=== PATIENT | male | born 1945 | race Caucasian/White ===

== ENCOUNTER 2018-07-29 08:27 | Day surgery (SDC) | payer OTHER, SELFPAY ==
--- NOTE | 2018-07-29 06:23 | W.COLOREPORT ---
Date of service: 07/29/18 Colonoscopy Report Date of procedure: 07/29/18 Pre-op diagnosis general: Hx of tubular adenomas Post-op diagnosis procedure note: same ( 5 polyps, diverticulosis, internal hemorrhoids and skin tags) Procedure: Colonoscopy with polypectomy by cold forceps Surgeon: Ekaterina De Guzman Anesthesia proc note operative: MAC (Sandie Lizarraga CRNA) Estimated blood loss (mL): 31 Pathology: other (5 polyps) Complications: None Disposition: same day Indications: Mr. Gar is a pleasant 72 year old male seen in the office for a repeat Colonoscopy. He has a history of colon polyps. He had 2 tubular adenomas in 2015. Risks, benefits and complications were reviewed and he wished to proceed. No guarantees were given or implied. Prep: Miralax/Dulcolax Procedure Start Time: 10:39 Procedure End Time: 11:28 Retraction Time: 31 minutes Findings: Diverticulosis of descending and sigmoid colon 5 polyps internal hemorrhoids and skin tags Tortuous colon Procedure Description: After informed consent was obtained the patient was taken to the procedure room and placed in a left decubitous position. Monitors were applied and a time out was done. The patients name, date of , procedure, allergies to medications and metal in their body was reviewed. The patient was then sedated. Once sedated and comfortable a rectal exam was done. External exam was normal. Internal exam revealed a normal sphincter tone and no palpable masses. The prostate was smooth. The scope was then introduced and retroflexed. Grade 1 internal hemorrhoids and skin tags were identified. The scope was then advanced to the cecum with difficulty due to the colon being tortuous. The TI and appendiceal orifice were identified. The prep was adequate. The scope was then slowly retracted over 31 minutes back into the rectum. 5 polyps were removed with cold forceps. 2 in the transverse colon and 3 in the sigmoid colon. There was also moderate diverticulosis of the descending and sigmoid colon. The scope was removed and the patient was woken up and taken back to Same day surgery in stable condition. The patient tolerated the procedure well and there were no immediate complications. Follow up: The patient should follow up in 3 years unless they develop changes in bowel habits or other new gastrointestinal complaints.
--- NOTE | 2018-07-29 06:25 | PDOC.DSDIS_ITS ---
Discharge Plan Disposition Patient Disposition: HOME Condition: Good Discharge Details Reason For Visit: Colonoscopy Attending Provider: kEaterina De Guzman Primary Care Provider: Rufino Turner Home Meds and New Rx's Prescriptions: Continue magnesium oxide 400 MG capsule 400 mg PO BID Qty: 180 RF: 3 aspirin 81 MG tablet,chewable 81 mg PO DAILY RF: 0 sertraline 50 MG tablet 25 - 50 mg PO DAILY Qty: 30 RF: 2 omeprazole 40 MG capsule,delayed release(DR/EC) 40 mg PO DAILY Qty: 90 RF: 3 atorvastatin [Lipitor] 20 MG tablet 20 mg PO DAILY Qty: 90 RF: 4 Discontinued polyethylene glycol 3350 17 gram powder in packet 255 g PO DAILY Qty: 15 RF: 0 bisacodyl [Dulcolax (bisacodyl)] 5 mg tablet,delayed release (DR/EC) 5 mg PO ONCE Qty: 4 RF: 0 Discharge Instructions Instructions: Colonoscopy (DC), Diverticulosis (DC), Colorectal Polyps (DC) Additional Instructions: Findings: 5 polyps Diverticulosis internal hemorrhoids and skin tag Follow up: 3 years New Medication: none Please call if you develop: fevers >101.5 Nausea or Vomiting Abdominal pain that is not transient DAY SURGERY UNIT POST COLONOSCOPY INSTRUCTIONS 1. Because there will be medication in your system for the next 24 hours, you may feel a little sleepy. Your coordination will be affected. Therefore: a. Do not drive or operate dangerous equipment for 24 hours. b. Do not drink alcohol beverages for 24 hours (not even beer). c. Plan to go home and rest for the day. 2. Generally there are no restrictions on your activity after a day or so has gone by, but you may feel a bit fatigued for a few days. 3 After you arrive home you may have a light meal and return to a normal diet as you can tolerate it without feeling sick to your stomach. 4. After surgery, you may feel pain or discomfort. This should be only transient , but if it persists please contact your doctor. 5. If there are any questions regarding the findings of your procedure, please feel free to contact your doctor. 6. If you are unable to contact your doctor with a problem, contact the [facility] at [phone]. 7. Continue all your regular medications unless directed otherwise. I understand the above instructions and have no questions. Signature of Patient or Responsible Adult Escort Date/Time Name of Responsible Adult Escort Signature of Nurse Date/Time Activity:: Activity as Tolerated Diet:: high fiber diet Discharge Orders Discharge Orders: Discharge Order (Routine); Ordered 07/29/18 Ordered By: Ekaterina De Guzman DS: Diagnosis Discharge Diagnosis (1) Diverticulosis: Status: Acute (2) Colorectal polyp detected on colonoscopy: Status: Acute
[2018-07-29 08:45] VITALS: BP 153/96; PULSE 73; RESP 16; TEMP 36.6; O2SAT 93
[2018-07-29] MEDS: Lactated Ringers 1,000 ML 80 ML IV (09:25)
--- NOTE | 2018-07-29 11:02 | BOWEL_PTH ---
PATIENT: Aldo Gar LOC: [facility] U#:[id number] AGE/SX: 72/M ROOM: RE07/29/[address]: Ekaterina De Guzman MD : [id number] BED: DIS: 07/29/2018 SPEC #: [id number] RECD: 07/29/18 12:46 STATUS: GILDARDO REQ #: [id number] SARTHAK: 07/29/18 11:[address]: Ekaterina De Guzman DEPT: Surgical Specimen RECD BY: Karla Mensah ENTERED: 07/29/18 12:49 SP TYPE: Bowel OTHR DR: Rufino Turner MD Tissues: 1 - BIOPSY BOWEL 2 - BIOPSY BOWEL Procedures: GROSS AND MICRO LEVEL 4 Comments: [id number]
[2018-07-29 12:15] VITALS: BP 141/77; PULSE 62; RESP 16; TEMP 36.5; O2SAT 99
== END 2018-07-29 12:30 | disposition home or self-care (01) ==
LOC: SUR 08:28
PROVIDERS: PCP Family Medicine; Visit Provider Surgery
PROC: 0DJD8ZZ Inspection of Lower Intestinal Tract, Via Natural or Artificial Opening Endoscopic (ICD-10-PCS; CPT 45378; principal; 2018-07-29 09:45)
DX: Z12.11 Encounter for screening for malignant neoplasm of colon (principal); D12.3 Benign neoplasm of transverse colon; D12.4 Benign neoplasm of descending colon; Z86.010 Personal history of colon polyps; I10 Essential (primary) hypertension
CPT/HCPCS: 45380; 88305

== ENCOUNTER 2020-10-18 02:29 | Outpatient (CLI) | payer OTHER, SELFPAY ==
[2020-10-18 12:58] LABS: Calculated LDL 93 mg/dL (<100); Cholesterol 156 mg/dL (<200); HDL Cholesterol 35 mg/dL (40-60); Triglyceride 143 mg/dL (<150)
== END 2020-10-18 02:49 ==
PROVIDERS: PCP Family Medicine; Visit Provider Family Medicine
DX: E78.5 Hyperlipidemia, unspecified (principal)
CPT/HCPCS: 36415; 80061

== ENCOUNTER 2021-09-01 12:15 | Emergency (ER) | payer OTHER, SELFPAY ==
[2021-09-01 12:30] VITALS: BP 200/93; PULSE 72; RESP 18; TEMP 36.9; O2SAT 97
[2021-09-01 13:28] LABS: Bilirubin Negative (Negative); Blood Negative (Negative); Clarity Clear (Clear); Glucose Negative (Negative); Ketones Negative (Negative); Leukocyte Esterase Negative (Negative); Nitrite Negative (Negative); Urobilinogen 0.2 EU/dL (Up TO 0.2)
--- NOTE | 2021-09-01 14:09 | ED.GENADUL_ITS ---
Discharge Plan Disposition Patient Disposition: HOME Condition: Stable Discharge Details Clinical Impression: Dysuria Primary Care Provider: Rufino Turner ED Provider: Karla Trammell Home Meds and New Rx's Prescriptions: New phenazopyridine [Pyridium] 100 mg tablet 100 mg PO TID PRNQty: 6 RF: 0 Continued omeprazole 40 mg capsule,delayed release(DR/EC) 40 mg PO DAILY Qty: 90 RF: 3 magnesium oxide 400 MG capsule 400 mg PO BID Qty: 180 RF: 3 losartan 50 mg tablet 50 mg PO DAILY Qty: 90 RF: 3 atorvastatin [Lipitor] 20 mg tablet 20 mg PO DAILY Qty: 90 RF: 4 Discharge Instructions Instructions: Dysuria (ED) Additional Instructions: take pyridium once a day as needed for discomfort follow-up with urology return earlier with new or worsening Referrals: Mohan Schmitt MD [ [facility] STAFF PHYSICIAN] - Rufino Turner MD [Primary Care Provider] - Discharge Data Discharge Date/Time-TO BE ENTERED AT DEPARTURE: 09/01/21 18:35 Medical Decision Making <CARLA Shi - Last Filed: 09/02/21 09:26> 75-year-old gentleman with history of TURP, presents stating urinary frequency and hesitancy over the past 48 hours. He does present initially hypertensive, repeat blood pressure revealed his blood pressure is trending downward. Denies any headache, visual change, chest pain. Bladder scan is 120. No sign of true retention. Will obtain urinalysis for potential UTI Urinalysis unremarkable. Discussed benign urinalysis with patient. Given there is no clear source of his symptoms, will obtain IV, CBC, CMP and lipase Laboratory values reveal no anemia, leukocytosis or electrolyte abnormality. Bilirubin is 2.6 but appears to be chronically elevated, has no right upper quadrant, patient is status post cholecystectomy. Discussed labs with patient. At this time we discussed obtaining CT imaging for potential additional information versus follow-up. He would like to move forward with CT imaging. Patient report a rash when receiving IV contrast but no anaphylaxis. Will give 1 L IV fluid, [address] IV [address] and obtain CT imaging with IV contrast. If CT is unremarkable, patient is comfortable discharge. Will likely benefit from being placed on the urology list and can trial oral Pyridium for symptomatic control. Medical Records Medical records reviewed: Yes I reviewed the patient's medical records. Lab Data Lab results reviewed: Yes I reviewed the patient's lab results. Labs: 09/01/21 13:20 Urine - Clean Catch Urine Culture - Pending Laboratory Tests Range/Units 09/01/21 09/01/21 09/01/21 13:20 14:04 14:04 WBC (4.4-10.8) 10^3/uL 6.28 RBC (4.36-5.78) 10^6/uL 5.23 Hgb (13.5-17.5) g/dL 16.7 Hct (40.0-50.0) % 47.7 MCV (80-95) fL 91.2 MCH (27.0-33.0) pg 31.9 MCHC (32.0-36.0) % 35.0 RDW (11.8-14.1) % 12.4 Plt Count (130-400) 10^3/uL 265 MPV (8.0-11.0) fL 9.4 Immature Gran % 0.2 Neutrophils % 71.9 Lymphocytes % 22.3 Monocytes % 5.1 Eosinophils % 0.0 Basophils % 0.5 Nucleated RBC % % 0 Absolute Neutrophils (1.2-6.7) 10^3/uL 4.52 Absolute Lymphocytes (1.2-3.4) 10^3/uL 1.40 Absolute Monocytes (0.1-0.8) 10^3/uL 0.32 Absolute Eosinophils (0.0-0.7) 10^3/uL 0.00 Absolute Basophils (0.0-0.2) 10^3/uL 0.03 Sodium (136-145) mmol/L 136 Potassium (3.5-5.1) mmol/L 4.9 Chloride (98-107) mmol/L 101 Carbon Dioxide (21.0-32.0) mmol/L 27.5 Anion Gap (3-11) mmol/L 7.5 BUN (7-18) mg/dL 14 Creatinine (0.70-1.30) mg/dL 1.2 Estimated GFR/1.73 m2 (mL/min/1.73m2) 59.18 Glucose (74-106) mg/dL 110 H Calcium (8.5-10.1) mg/dL 9.5 Total Bilirubin (0.2-1.0) mg/dL 2.6 H AST (15-37) U/L 16 ALT (16-63) U/L 35 Alkaline Phosphatase (46-116) U/L 69 Total Protein (6.4-8.2) g/dL 7.4 Albumin (3.4-5.0) g/dL 4.2 Lipase (73-393) U/L 43 Urine Color (Yellow) Yellow Urine Clarity (Clear) Clear Urine pH (5-8) 7.0 Ur Specific [place] (1.005-1.025) 1.020 Urine Protein (Negative) mg/dL Negative Urine Ketones (Negative) mg/dL Negative Urine Blood (Negative) Negative Urine Nitrite (Negative) Negative Urine Bilirubin (Negative) Negative Urine Urobilinogen (Up TO 0.2) EU/dL 0.2 Ur Leukocyte Esterase (Negative) Negative Urine Glucose (Negative) mg/dL Negative <CARLA Beltre - Last Filed: 09/01/21 20:56> Care is transferred from Korey Thakkar PA-c at 1600 Patient had a postvoid residual of 0 on his bladder scan He is resting comfortably, his vitals are stable, CT does not show acute abnormality, he did have does have 2 small renal cysts which she will follow up with urology regarding I have given him several doses of Pyridium to help with his dysuria There is no indication for antibiotics at this time, I did order urine culture which is pending He was observed post IV contrast and is asymptomatic He is discharged home in stable condition with stable vitals, is given low threshold to return with new or worsening complaints HPI <CARLA Shi Last Filed: 09/02/21 09:26> General Mode of arrival: ambulatory . Date/Time Provider Initiated Documentation: 09/01/21 12:39 . Limitations to Documentation: no limitations . Information obtained by: patient and family . HPI Narrative: This is a 75-year-old gentleman, past medical history of hypertension, TURP, GERD, presenting to the ER today for evaluation of mild dysuria, frequency and urinary retention over the past 48 hours. Patient states it simply feels as though he is not emptying his bladder completely. He denies recent illness or trauma. He denies headache, chest pain, fever, abdominal pain, nausea, vomiting, back pain, hematuria, pain in his scrotum or testicles. Denies any penile discharge. Patient states that he is still able to urinate although sometimes initiating a stream is difficult, also after he is finished urinating he feels as though his bladder is not completely empty. He does acknowledge that he is hypertensive now, reports he is anxious, but he did take his hypertensive medications this morning. Related Data Home Medications Medication Instructions Recorded Confirmed magnesium oxide 400 mg PO BID #180 tab-cap 10/31/16 09/01/21 omeprazole 40 mg capsule,delayed 40 mg PO DAILY #90 tab-cap 10/12/20 09/01/21 release losartan 50 mg tablet 50 mg PO DAILY #90 tab 04/26/21 09/01/21 atorvastatin 20 mg tablet 20 mg PO DAILY #90 tab-cap 06/21/21 09/01/21 phenazopyridine [Pyridium] 100 mg PO TID PRN #6 tab 09/01/21 Previous Rx's Medication Instructions Recorded omeprazole 40 mg capsule,delayed 40 mg PO DAILY #90 tab-cap 10/12/20 release losartan 50 mg tablet 50 mg PO DAILY #90 tab 04/26/21 atorvastatin 20 mg tablet 20 mg PO DAILY #90 tab-cap 06/21/21 phenazopyridine [Pyridium] 100 mg PO TID PRN #6 tab 09/01/21 Allergies Allergy/AdvReac Type Severity Reaction Status Date / Time Iodinated Contrast Media Allergy Intermediate Skin Rash Verified 09/01/21 12:34 [Iodinated Contrast- Oral and IV Dye] Penicillins Allergy Verified 09/01/21 12:34 General Stated Complaint: Urinary MANSOOR: 3 Review of Systems <CARLA Shi - Last Filed: 09/02/21 09:26> Constitutional Constitutional: Denies fever(s) Cardiovascular Cardiovascular: Denies chest pain and Denies dyspnea Respiratory Respiratory: Denies cough and Denies dyspnea Gastrointestinal Gastrointestinal: Denies abdominal pain, Denies nausea, Denies vomiting and Reports other (Reports suprapubic pressure) Genitourinary Genitourinary: Denies hematuria, Reports dysuria, Reports urinary hesitancy and Reports urinary urgency Musculoskeletal Musculoskeletal: Denies back pain Integumentary/Breasts Skin/Breast: Denies rash PFS <CARLA Shi - Last Filed: 09/02/21 09:26> Active Problem List Dysuria (Acute) Dyshidrosis (Acute) Nasal lesion (Acute) Phlegm in throat (Acute) Well adult (Acute) Abnormal weight (Chronic) Detrusor instability (Acute) Hypertension (Chronic) Overweight (Acute) Alcohol intake above recommended sensible limits (Acute) Hematuria (Acute) History of hydrocelectomy (Acute) History of tobacco use (Acute) History of umbilical hernia repair (Acute) Status post cholecystectomy (Acute) Status post inguinal hernia repair (Acute) Status post transurethral resection of prostate (Acute) Urinary bladder stone (Acute) Rash and nonspecific skin eruption (Acute) Diverticulosis (Acute) Tubular adenoma (Chronic) Primary malignant neoplasm of colon (Chronic) Obesity (Chronic) Neoplasm of uncertain behavior of other specified sites (Acute 05/10/16) Hyperlipidemia (Chronic) Gastroesophageal reflux disease (Chronic) Gallbladder calculus (Chronic) Essential hypertension (Chronic 11/03/13) Esophageal reflux (Chronic) 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) Diffuse large B-cell lymphoma, unspecified site (Acute 05/10/16) Dermatitis (Chronic) Depressive disorder (Chronic) Chronic interstitial cystitis (Chronic) Benign prostatic hyperplasia (Chronic) B-cell lymphoma (Chronic) Neutropenia (Chronic) Hypomagnesemia (Acute) Anemia (Acute) Surgical History Cholecystectomy (11/10/11) Colonoscopy - MAC (~1998) TUBULOVILLOUS ADENOMA WITH FOCAL AND BASIC ADENOCARCINOMA Tubular adenoma in 2015 x2 Colonoscopies 2003,2006,2010,2015 excision of hydrocele Repair of inguinal hernia Repair of umbilical hernia Transurethral prostatectomy Family History Mother No problems noted. Sister Personal history of malignant neoplasm Lymphoma Social History Smoking/Tobacco Use Status: Former Tobacco Use Smoking risk assessment performed?: Yes Alcohol Intake: former Drug use: Never Substance use type: does not use Caregiver/Support person: No Household members: spouse Housing: house Communication Needs: None Do you need help understanding health information?: Never Pets and animals: Yes Pets and animals: dog(s) Sexually active: No Do you think of yourself as: straight/heterosexual Current gender identity: male What is your relationship status?: How often do you talk on the phone with friends or family?: three or more times per week How often do you attend amish or mandaeism services?: 1-3 times per year Do you belong to any clubs or organized social groups?: decline to answer Panel score (0-1 are the most socially isolated patients): 2 What type of physical activity do you participate in: walking Duration: 30-45 minutes/day Frequency: daily Cherrie/Presybeterian: Protestant Special cherrie needs: No Seatbelt use: always Helmet use: No Drive intox or ride w/intox road train driver: No Do you feel safe at home: Yes Do you feel safe in your relationship?: Yes Exam <CARLA Shi - Last Filed: 09/02/21 09:26> Const General: cooperative, healthy appearing, comfortable and no acute distress Orientation: alert and awake HENCA Head: normal to inspection, normocephalic and atraumatic Eyes General: appearance normal, both eyes and all related structures Conjunctivae: conjunctivae normal Neck Neck: normal visual inspection, trachea midline and supple Resp Effort & Inspection: normal respiratory effort and able to speak in complete sentences Auscultation: clear to auscultation bilaterally Cardio Rate: regular rate Rhythm: regular rhythm GI Inspection: normal to inspection Palpation: soft, not firm, no guarding, no pulsatile masses and nontender Auscultation: normal bowel sounds Back/Spine/Pelvis Back: no CVA tenderness and No back tenderness Skin General skin exam: no rashes or lesions noted Neuro General: patient alert, patient awake, patient oriented x3, moves all extremities and no focal motor deficits Cognition: normal cognition Speech: speech normal Gait: normal gait Sensory Exam: no sensory deficits noted Psych Appearance: grossly normal Mental Status: mental status grossly normal Course <CARLA Shi - Last Filed: 09/02/21 09:26> Vital Signs Vital signs: Vital Signs Temperature 36.9 C 09/01/21 12:30 Pulse 72 09/01/21 12:30 Respiratory Rate 18 09/01/21 12:30 Blood Pressure 200/93 H 09/01/21 12:30 Pulse Oximetry 97 09/01/21 12:30 Temperature 36.9 C 09/01/21 12:30 Temperature Source Oral 09/01/21 12:30 Pulse 72 09/01/21 12:30 Respiratory Rate 18 09/01/21 12:30 Respiratory Effort Non-Labored 09/01/21 12:36 Blood Pressure 200/93 H 09/01/21 12:30 Blood Pressure Position Sitting 09/01/21 12:30 Pulse Oximetry 97 09/01/21 12:30 Oxygen Delivery Method Room Air 09/01/21 12:30 Oxygen Flow Rate 0 09/01/21 12:30 Lab/Test Results Lab/Test Results: Laboratory Tests Range/Units 09/01/21 13:20 Urine Color (Yellow) Yellow Urine Clarity (Clear) Clear Urine pH (5-8) 7.0 Ur Specific [place] (1.005-1.025) 1.020 Urine Protein (Negative) mg/dL Negative Urine Ketones (Negative) mg/dL Negative Urine Blood (Negative) Negative Urine Nitrite (Negative) Negative Urine Bilirubin (Negative) Negative Urine Urobilinogen (Up TO 0.2) EU/dL 0.2 Ur Leukocyte Esterase (Negative) Negative Urine Glucose (Negative) mg/dL Negative Sign Out <CARLA Shi - Last Filed: 09/02/21 09:26> Sign Out Data: Sign Out Comment: Pending CT of abdomen and pelvis for urinary frequency, hesitancy, feeling like incomplete void. Bladder scan revealed 120 cc of urine. If CT is unremarkable patient can likely be discharged with urology referral Last updated by Korey Thakkar PA at 09/01/21 15:25
[2021-09-01 14:12] LABS: Abs Immature Grans 0.01 10^3/uL (0.0-0.06); Absolute Basophil Count 0.03 10^3/uL (0.0-0.2); Absolute Monocyte Count 0.32 10^3/uL (0.1-0.8); Absolute Neutrophil Count 4.52 10^3/uL (1.2-6.7); Basophils % 0.5; HCT 47.7 % (40.0-50.0); HGB 16.7 g/dL (13.5-17.5); Immature Grans % 0.2; Lymphocytes % 22.3; MCH 31.9 pg (27.0-33.0); MCV 91.2 fL (80-95); MPV 9.4 fL (8.0-11.0); Monocytes % 5.1; Neutrophils % 71.9; Nucleated RBC 0 %; Platelet Count 265 10^3/uL (130-400); RBC 5.23 10^6/uL (4.36-5.78); RDW 12.4 % (11.8-14.1); RDW-SD 41.3 fL; WBC 6.28 10^3/uL (4.4-10.8)
[2021-09-01 14:24] VITALS: BP 171/80; PULSE 63; TEMP 36.8; O2SAT 97
[2021-09-01 14:24] LABS: ALT 35 U/L (16-63); AST 16 U/L (15-37); Albumin 4.2 g/dL (3.4-5.0); Alkaline Phosphatase 69 U/L (46-116); Anion Gap 7.5 mmol/L (3-11); BUN 14 mg/dL (7-18); Bilirubin, Total 2.6 mg/dL (0.2-1.0); CO2 27.5 mmol/L (21.0-32.0); CREATININE 1.2 mg/dL (0.70-1.30); Calcium 9.5 mg/dL (8.5-10.1); Chloride 101 mmol/L (98-107); Estimated GFR 59.18 (mL/min/1.73m2); Glucose 110 mg/dL (74-106); Lipase 43 U/L (73-393); Potassium 4.9 mmol/L (3.5-5.1); Sodium 136 mmol/L (136-145); Total Protein 7.4 g/dL (6.4-8.2)
--- NOTE | 2021-09-01 14:49 | DI.CT_ITS ---
Exam(s) CT ABDOMEN PELVIS W EXAM: CT ABDOMEN PELVIS W CLINICAL HISTORY: Urinary frequency-retention, suprapubic pain. TECHNIQUE: Imaging Protocol: Axial computed tomography images with coronal and sagittal reformatted images were created and reviewed CONTRAST MATERIAL: Intravenous: Omnipaque 350 Contrast volume:100 ml Oral: no COMPARISON: CT ABD PELVIS WO CONTRAST from 11/09/2011 CR CHEST 2 VIEWS PA,LAT from 08/12/2016 CR CHEST 2 VIEWS PA,LAT from 08/12/2016 FINDINGS: ABDOMEN: Lung Bases: Mild chronic peripheral tree-in-bud opacities Liver: Fatty infiltration.. No measurable mass. Gallbladder and biliary tract: Status post cholecystectomy. No radiodense calculus or dilation. Pancreas: Normal density, no abnormal calcifications or inflammatory process. Spleen: Normal. Kidneys: Normal size, contour and axis. No radiodense stones or obstructive uropathy. No masses seen. Small cysts. Adrenal glands: No masses seen. Abdominal Aorta: Abdominal portion non-dilated. Atherosclerotic changes. Small hiatal hernia. Soft tissues: Prior abdominal wall repair. Small amount of fat at the umbilicus. PELVIS: Bladder: No gross wall thickening. No calculi.No focal mass. Bowel: No obstruction or bowel wall thickening. Appendix normal. Peritoneal cavity: No ascites, collection or mesenteric inflammatory response. Bones: Old pubic ramus fractures. Hardware through right sacroiliac joint. Reproductive organs: Prostate calcifications. Prostate not enlarged. Probable TURP defect. Lymph nodes: Unremarkable. Bilateral inguinal hernia repair. No recurrence hernia. Impression: Unremarkable urinary bladder. No acute abnormality in the the abdomen and pelvis. RADIATION DOSE DELIVERED: 1,297.4mGy.cm Total DLP DATA REPOSITORY: All CT scans at this facility are submitted to the National Radiology Data Registry (NRDR) Dose Index Registry (DIR) with the [employer] (A[employer]). RADIATION OPTIMIZATION: All CT scans at this facility use at least one of these dose optimization te chniques: automated exposure control; mA and/or kV adjustment per patient size (includes targeted exa ms where dose is matched to clinical indication); or iterative reconstruction.
[2021-09-01] MEDS: diphenhydrAMINE 50 MG/ML VIAL IVP (15:54)
[2021-09-01] MEDS: Omnipaque 350 MG/ML 100 ML BTL IV (16:00)
[2021-09-01] MEDS: Normal Saline 1,000 ML 1000 ML IV (16:18)
--- NOTE | 2021-09-01 17:20 | DI.VRAD_ITS ---
PROCEDURE INFORMATION: Exam: CT Abdomen And Pelvis With Contrast Exam date and time: 09/01/2021 3:58 PM Age: 75 years old Clinical indication: Urinary frequency, retention, suprapubic pain TECHNIQUE: Imaging protocol: Computed tomography of the abdomen and pelvis with contrast. Radiation optimization: All CT scans at this facility use at least one of these dose optimization techniques: automated exposure control; mA and/or kV adjustment per patient size (includes targeted exams where dose is matched to clinical indication); or iterative reconstruction. Contrast material: OMNIPAQUE 350; Contrast volume: 100 ml; Contrast route: INTRAVENOUS (IV); COMPARISON: CT CHEST ABD PELVIS WO CONTRAST 05/31/2015 10:06 AM FINDINGS: Lungs: Small foci of tree-in-bud opacities noted in the lung bases, similar to prior examination and likely chronic finding. Diaphragm: There is a small hiatal hernia. Liver: Normal. No mass. Gallbladder and bile ducts: The patient is status post cholecystectomy. Pancreas: No ductal dilation. Spleen: No splenomegaly. Adrenal glands: Normal. No mass. Kidneys and ureters: A 1.6 cm simple cyst seen in the inferior aspect of the right kidney. A 6 mm hypodensity in the left inferior pole is too small to characterize but may also represent a cyst. Stomach and bowel: No obstruction. No mucosal thickening. Appendix: No evidence of appendicitis. Intraperitoneal space: No free air. No significant fluid collection. Vasculature: No abdominal aortic aneurysm. Lymph nodes: No enlarged lymph nodes. Urinary bladder: Unremarkable as visualized. Reproductive: Calcifications noted throughout the prostate gland. Bones/joints: There is evidence of prior right sacroiliac joint repair. Old fractures noted in the right inferior and bilateral superior pubic rami. No acute fracture. Lumbar spine degenerative changes noted. Soft tissues: There is evidence of hernia repair procedure in the anterior abdominal wall. There is a small fat-containing umbilical hernia noted. There is suggestion of prior bilateral inguinal hernia. IMPRESSION: 1. No evidence of bowel obstruction. 2. Unremarkable appearance of the urinary bladder. Dictated and Authenticated by: Erika Norton MD. Ordering:ALEKSANDAR Nair MD
[2021-09-01 18:36] VITALS: BP 162/80; PULSE 64; RESP 16; TEMP 36.8; O2SAT 99
== END 2021-09-01 18:35 | disposition home or self-care (01) ==
PROVIDERS: Physician Assistant; Emergency Provider Physician Assistant; PCP Family Medicine
DX: R30.0 Dysuria (principal); R35.0 Frequency of micturition
CPT/HCPCS: 36415; 80053; 83690; 96361; 96374; 99285; 74177; 81003; 85025; 87086; 99284; J1200; J3490

== ENCOUNTER 2021-09-15 16:10 | Outpatient (REF) | payer OTHER, SELFPAY ==
[2021-09-15 23:03] LABS: PSA, Screening 0.4 ng/mL (0.0-6.5)
== END 2021-09-15 16:11 | disposition home or self-care (01) ==
LOC: LBN 16:10
PROVIDERS: PCP Family Medicine; Visit Provider Nurse Practitioner Gerontology
DX: Z12.5 Encounter for screening for malignant neoplasm of prostate (principal)
CPT/HCPCS: 84153

== ENCOUNTER 2021-10-26 01:55 | Outpatient (CLI) | payer OTHER, SELFPAY ==
[2021-10-26 11:57] LABS: Source Nasal/Nares
[2021-10-26 16:14] LABS: COVID-19 PCR Negative (Negative)
== END 2021-10-26 01:56 | disposition home or self-care (01) ==
LOC: LBO 01:55
PROVIDERS: PCP Family Medicine; Visit Provider Surgery
DX: Z20.822 Contact with and (suspected) exposure to COVID-19 (principal)
CPT/HCPCS: 87635

== ENCOUNTER 2021-10-28 06:13 | Day surgery (SDC) | payer OTHER, SELFPAY ==
--- NOTE | 2021-10-27 13:32 | COLE_ITS ---
Colonoscopy Report Pre-op diagnosis general: 2018 -tubular adenomatous polyps x 5/history of CRC - stage I sigmoid Post-op diagnosis procedure note: other (polyps and diverticula- severe) Surgeon: Ariadna Colbert Anesthesia Type: General:No Airway Estimated blood loss (mL): 2 Pathology: other Complications: None Disposition: same day Prep: Miralax/Dulcolax Retraction Time: 10 Procedure Description: After informed consent was obtained the patient was taken to the procedure room and placed in a left decubitous position. Monitors were applied and a time out was done. The patients name, date of , procedure, allergies to medications and metal in their body was reviewed. The patient was then sedated. Once sedated and comfortable a rectal exam was done. External exam was normal. Internal exam revealed a normal sphincter tone and no palpable masses. The scope was then introduced and retrofelexed. no internal hemorrhoids were identified. The scope was then advanced to the cecum w/ difficulty. The TI and appendiceal orifice were identified. The prep was adequate.. The scope was then slowly retracted over 10 minutes back into the rectum. He has severe diverticular disease confined to the left colon. He has multiple large mouth diverticula. There is no signs of any active bleeding or infection. He has had a previous sigmoid resection. The anastomosis is noted and it is widely patent. There is no signs of any recurrence of carcinoma in this area. He has an extremely tortuous and floppy colon, which made maneuvering the scope difficult. 3 polyps were removed. Each of these is 5 mm, flat polyp. They were removed with cold biting forcep. He had x2 at 80 cm and 1 at 30 cm. All specimen is retrieved and no bleeding is noted. The scope was removed and the patient was woken up and taken back to Same day surgery in stable condition. The patient tolerated the procedure well and there were no immediate complications. Follow up: The patient should follow up in 5 years , if he is still healthy for anesthesia, unless they develop changes in bowel habits or other new gastrointestinal complaints.
--- NOTE | 2021-10-27 13:33 | PDOC.DSDIS_ITS ---
Discharge Plan Disposition Patient Disposition: HOME Condition: Good Discharge Details Reason For Visit: colon scope Attending Provider: Ariadna Colbert Primary Care Provider: Rufino Turner Home Meds and New Rx's Prescriptions: Continued losartan 25 mg tablet 25 mg PO DAILY Qty: 90 RF: 3 tamsulosin [Flomax] 0.4 mg capsule 0.4 mg PO DAILY Qty: 90 RF: 3 omeprazole 40 mg capsule,delayed release(DR/EC) 40 mg PO DAILY Qty: 90 RF: 3 magnesium oxide 400 MG capsule 400 mg PO BID Qty: 180 RF: 3 losartan 50 mg tablet 50 mg PO DAILY Qty: 90 RF: 3 atorvastatin [Lipitor] 20 mg tablet 20 mg PO DAILY Qty: 90 RF: 4 Discontinued bisacodyl [Dulcolax (bisacodyl)] 5 mg tablet,delayed release (DR/EC) 5 mg PO ONCE Qty: 4 RF: 0 polyethylene glycol 3350 17 gram/dose powder 17 g PO ONCE Qty: 238 RF: 0 Discharge Instructions Additional Instructions: DSU Colonoscopy Post- Op Instructions Instructions for Everyone who is given Anesthesia: For your safety, please do the following for the next twenty-four (24) hours: *Do Not operate a motor vehicle (car, truck, motorcycle, etc.) *Do Not drink alcoholic beverages or use any recreational drugs for the first 24 hours or while taking pain medications. The medications in your body may have a reaction that can be dangerous. *Do Not make any important decisions or sign any important papers. Findings: x3 polyps diverticula Follow up: repeat in 5 yrs time if still healthy for anesthesia. 1. No lifting over 20 pounds or strenuous activity for the first 24 hours after your procedure. After 24 hours there are no restrictions on your activity but you may feel fatigued for a few days. 2. After you arrive home you may have a light meal and return to your normal diet as you can tolerate it without feeling sick to your stomach. 3. You may have a bloated, gaseous feeling in your belly (abdomen) after a colonoscopy. Passing gas and belching will help. Walking or lying down on your left side with your knees flexed may relieve the discomfort. Call the office at [phone] (Office) or [phone] (Hospital) right away if you notice any of the following: a.Vomiting of blood or ?coffee ground stools?. b.Rectal bleeding 1Tbsp, blood clots or continuous bleeding. c.Severe belly (abdominal) pain. d.A hard distended belly (abdomen) and an inability to pass gas. 4. Please don?t expect to have a normal BM (bowel movement) for 2-3 days after your procedure. 5. If there are questions regarding the findings of your procedure, please contact your doctor 6. If you are unable to contact your doctor with a problem, contact the hospital at [phone]. 7. Continue all your regular medications unless directed otherwise. I understand the above instructions and have no questions. Signature of Patient or Adult Escort Name of Responsible Adult Escort Signature of Nurse Date/Time Activity:: see above Diet:: see above Discharge Orders Discharge Orders: Discharge Order (Routine); Ordered 10/27/21 Ordered By: Ariadna Colbert DS: Diagnosis Discharge Diagnosis (1) Adenomatous colon polyp: Status: Acute (2) Diverticulosis: Status: Acute
[2021-10-28 06:35] VITALS: BP 171/89; PULSE 83; RESP 15; TEMP 36.9; O2SAT 99
[2021-10-28] MEDS: Lactated Ringers 1,000 ML 80 ML IV (06:47)
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
[2021-10-28 07:18] VITALS: BMI 32.5
--- NOTE | 2021-10-28 07:50 | BOWEL_PTH ---
PATIENT: Aldo Gar LOC: [facility] U#:[id number] AGE/SX: 76/M ROOM: RE10/28/[address]: Ariadna Colbert : 1945 BED: DIS: 10/28/2021 SPEC #: [id number] RECD: 10/28/21 11:25 STATUS: GILDARDO RE #: [id number] SARTHAK: 10/28/21 07:[address]: Ariadna Colbert DEPT: Surgical Specimen RECD BY: Karla Mensah ENTERED: 10/28/21 11:26 SP TYPE: Bowel OTHR DR: Rufino Turner MD Tissues: 1 - BIOPSY BOWEL 2 - BIOPSY BOWEL Procedures: GROSS AND MICRO LEVEL 4 Comments: [id number]
[2021-10-28 08:18] VITALS: BP 99/86; PULSE 63; RESP 20; TEMP 36; O2SAT 96
--- NOTE | 2021-10-28 08:48 | W.ANESPOSTOP ---
Postoperative Evaluation Date, Time and Location Date Performed: 10/28/21 Time Performed: 08:33 Patient Location: Day Surgery Unit Vital Signs Most Recent Imported Vital Signs: Most Recent Vital Signs Temp Pulse Resp BP Pulse Ox 36 C L 63 20 99/86 L 96 10/28/21 08:18 10/28/21 08:18 10/28/21 08:18 10/28/21 08:18 10/28/21 08:18 Pain Score Most Recent Pain Score: Most Recent Pain Score Pain Level 0 10/28/21 08:18 Assessment Mental Status: Awake (Alert & Oriented to Patient Baseline) Airway and Respiratory Function: Patent airway with normal (patient baseline) respiratory exam Cardiovascular Function: Hemodynamically Stable Hydration Status: Adequately Hydrated Nausea & Vomiting: No Nausea or Vomiting Pain: Pt. Denies Any Pain Peripheral Nerve Block: Patient did not receive a nerve block
[2021-10-28 08:49] VITALS: BP 124/76; PULSE 60; TEMP 36.1; O2SAT 99
== END 2021-10-28 09:35 | disposition home or self-care (01) ==
LOC: SUR 06:13
PROVIDERS: PCP Family Medicine; Visit Provider Surgery
PROC: 0DJD8ZZ Inspection of Lower Intestinal Tract, Via Natural or Artificial Opening Endoscopic (ICD-10-PCS; CPT 45378; principal; 2021-10-28 07:30)
DX: Z12.11 Encounter for screening for malignant neoplasm of colon (principal); D12.4 Benign neoplasm of descending colon; I10 Essential (primary) hypertension; K57.30 Diverticulosis of large intestine without perforation or abscess without bleeding; D64.9 Anemia, unspecified; Z85.038 Personal history of other malignant neoplasm of large intestine; Z86.010 Personal history of colon polyps; D12.5 Benign neoplasm of sigmoid colon
CPT/HCPCS: 45380; 88305; J2001; J2405

== ENCOUNTER 2021-11-03 11:31 | Outpatient (REF) | payer OTHER, SELFPAY ==
--- NOTE | 2021-11-03 10:20 | SKI_PTH ---
PATIENT: Aldo Gar LOC: [facility] U#:[id number] AGE/SX: 76/M ROOM: RE11/03/[address]: Ariadna Colbert : 1945 BED: DIS: 11/03/2021 SPEC #: [id number] RECD: 11/03/21 12:33 STATUS: GILDARDO REQ #: [id number] SARTHAK: 11/03/21 10:[address]: Ariadna Colbert DEPT: Surgical Specimen RECD BY: Karla Mensah ENTERED: 11/03/21 12:34 SP TYPE: CLINT BRAG[place] DR: Rufino Turner MD Tissues: 1 - SKIN CYST/TAG/DEBRIDEMENT Procedures: GROSS AND MICRO LEVEL 3 Comments: [id number]
== END 2021-11-03 11:32 | disposition home or self-care (01) ==
LOC: LBN 11:31
PROVIDERS: PCP Family Medicine; Visit Provider Surgery
DX: L72.0 Epidermal cyst (principal)
CPT/HCPCS: 87624; 88304

== ENCOUNTER 2022-03-01 04:27 | Outpatient (CLI) | payer OTHER, SELFPAY ==
[2022-03-01 13:12] LABS: Calculated LDL 95 mg/dL (<100); Cholesterol 153 mg/dL (<200); HDL Cholesterol 39 mg/dL (40-60); Triglyceride 96 mg/dL (<150)
== END 2022-03-01 04:28 | disposition home or self-care (01) ==
LOC: LOS 04:27
PROVIDERS: PCP Family Medicine; Visit Provider Family Medicine
DX: E78.5 Hyperlipidemia, unspecified (principal)
CPT/HCPCS: 36415; 80061

== ENCOUNTER 2023-03-16 08:50 | Day surgery (SDC) | payer OTHER, SELFPAY ==
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
[2023-03-16] MEDS: Tropicam./Phenyleph. (1/2.5%) 5 ML BTL OS ×3 (10:07→10:29)
[2023-03-16 10:18] VITALS: BP 150/78; PULSE 61; RESP 16; TEMP 36.3; O2SAT 97
[2023-03-16 10:28] VITALS: BMI 29.9
[2023-03-16] MEDS: Balanced Salt Soln.-PLUS 500 ML BAG OP (11:07)
[2023-03-16] MEDS: Lidocaine 1% Pres-Free 5 ML VIAL (11:09)
[2023-03-16] MEDS: Tetracaine 0.5% 4 ML BTL OS (11:09)
[2023-03-16] MEDS: Duovisc Viscoelastic System EACH 1 EACH (11:09)
[2023-03-16] MEDS: Povidone-Iodine Ophth 30 ML BTL (11:10)
[2023-03-16] MEDS: Phenylephrine/Lidocaine (15/10) MG/ML 1 ML VIAL (11:10)
[2023-03-16 11:29] VITALS: BP 122/67; PULSE 60; RESP 16; TEMP 36.6; O2SAT 97
--- NOTE | 2023-03-16 11:33 | W.PM.DSUDISC ---
Date of service: 03/16/23 Time of Service: 11:34 Discharge Plan Disposition Patient Disposition: Home Discharge Details Reason For Visit: cataract Attending Provider: Lucian Palacios Primary Care Provider: Rufino Turner Home Meds and New Rx's Prescriptions: No Action sertraline 50 mg tablet 25 - 50 mg PO DAILY Qty: 90 2RF Rx Instructions: 25 mg /day for first month, then to 50 mg if needed famotidine [Pepcid] 20 mg tablet 20 mg PO QHS Qty: 90 3RF timolol maleate 0.5 % drops 1 drp ophthalmic (eye) BID omeprazole 40 mg capsule,delayed release(DR/EC) 40 mg PO BID Qty: 180 3RF magnesium oxide 400 MG capsule 400 mg PO BID Qty: 180 atorvastatin [Lipitor] 20 mg tablet 20 mg PO DAILY Qty: 90 4RF losartan 25 mg tablet 25 mg PO DAILY Qty: 90 3RF Rx Instructions: add to 50 mg tab to equal 75 mg/day tamsulosin [Flomax] 0.4 mg capsule 0.8 mg PO DAILY Qty: 180 3RF losartan 50 mg tablet 50 mg PO DAILY Qty: 90 3RF Discharge Instructions Stand Alone Forms: Post-op Topical Cataract, Love Amato (DSU) Discharge Orders Discharge Orders: Discharge Order (Routine); Ordered 03/16/23 Ordered By: Lucian Palacios DS: Diagnosis Discharge Diagnosis (1) Nuclear age-related cataract, left eye: Status: Resolved
--- NOTE | 2023-03-16 11:34 | W.PM.OP ---
Date of service: 03/16/23 Time of Service: 11:34 Operative Note Operative Note DATE OF PROCEDURE: 03/16/23 PRE-OP DIAGNOSIS: Nuclear cataract, left eye Poorly dilating pupil, left eye POST-OP DIAGNOSIS: same PROCEDURE: Cataract extraction by phacoemulsification with intraocular lens implantation, left eye, with pupillary expansion device SURGEON: Lucian Palacios ANESTHESIA TYPE: Local By Surgeon and MAC Refer to Anesthesia Record ESTIMATED BLOOD LOSS: 0 PATHOLOGY: none sent COMPLICATIONS: None Patient was transported to: same day Patient's condition: stable Implants: Dwayne [employer] Dwayne / [employer] Tecnis Eyhance [id number] Indications: Progressive decreased vision, left eye Poorly dilating pupil, left eye. Procedure Description: CATARACT SURGERY OPERATIVE REPORT PREOPERATIVE DIAGNOSIS: 1. Nuclear cataract, left eye 2. Poorly dilating pupil, left eye POSTOPERATIVE DIAGNOSIS: Same OPERATION: 1. Cataract extraction using phacoemulsification with posterior chamber intraocular lens implant, left eye. 2. Pupillary dilation and iris stabilization using Malyugin Ring IOL; IOL District Manager [employer] Sales/Model: Dwayne & Dwayne / [employer] Tecnis Eyhance DIB00 IOL Power: +22.5 diopters IOL Serial Number: [id number] Optic Diameter: 6.0 mm Haptic/Overall Diameter: 13.00 mm PHACO INFO: Mychal Adama Materialsurion Vision System with OZil and Active Fluidics Cumulative Dispersed Energy (CDE): 20.69 seconds SURGEON: Lucian Palacios MD, SUHAIL ANESTHESIA: Monitored Anesthesia Care (MAC), with local sub-tenon's anesthetic infiltration COMPLICATIONS: None SPECIMENS: None INDICATIONS FOR PROCEDURE: The patient is a 77-year-old male with history of diminished visual acuity in his left eye secondary to the development of moderately dense nuclear cataract. The option of cataract surgery was offered to the patient and he wished to proceed. See office notes for detailed information. PROCEDURE: The correct surgical eye was identified and marked as the left eye and the pupil was dilated in the preoperative area using mydriatics, cycloplegics, and NSAIDS (except in aspirin allergic patients). The dilated pupil size was 4.0 mm. Oral sedation was administered in the form of an Imprimis MKO Melt (midazolam 3mg/ketamine 25mg/ondansetron 2mg). The patient was brought to the operating room where cardiopulmonary monitoring was instituted and surgical time-out was performed, confirming the correct operative eye and IOL power. Topical anesthesia was administered and ophthalmic povidone-iodine 5% was instilled into the conjunctival fornices. Lidocaine gel was applied to the cornea and the naz-ocular area was prepped with Betadine 10% solution and draped in the usual sterile fashion for intraocular surgery, including an aperture drape. A Tegaderm transparent film dressing was cut in half and used to cover the lashes and lid margins. Care was taken to sequester the lashes and lid margins under the Tegaderm dressing. A lid speculum was placed between the lids of the operative eye and the [employer] operating microscope was maneuvered into position. Jean-Pierre scissors were then used to make a conjunctival buttonhole approximately 6mm posterior to the limbus in the inferonasal quadrant. Blunt dissection was carried out to expose bare sclera, and a blunt-tipped sub-tenon?s anesthesia cannula was introduced and passed posteriorly along the globe where non-preserved plain lidocaine was injected into posterior sub-Tenon?s space. A sideport knife was used to make a paracentesis port superiorly/superiortemporally. Intraocular phenylephrine/lidocaine was injected into the anterior chamber. The anterior chamber was then filled with viscoelastic. A keratome knife was used to create a half-thickness groove at the limbus and then to construct a three-plane near-clear corneal tunnel extending 2.0mm into clear cornea at the temporal position. A 6.25 mm Malyugin Ring was then inserted into the pupillary space and engaged with the Kuglen hook. A flap was raised on the anterior capsule and capsulorhexis forceps were used to complete a continuous curvilinear capsulorhexis of 5.0 mm. Balanced salt solution was then used to perform cortical cleaving hydrodissection and nuclear hydrodelineation until the lens could be freely rotated within the capsular bag. The lens nucleus was then disassembled and removed within the capsular bag and iris plane using phacoemulsification. Residual cortical material was removed using the 45-degree angled silicone I/A tip with 0.3mm port. The posterior capsule was carefully polished to remove as much residual lens epithelial cells as safely possible. The capsular bag was then inflated and the anterior chamber deepened with viscoelastic. The lens implant described above was inserted into the capsular bag using the Dwayne and Dwayne Simplicity Injector. A [employer] hook was used to dial the IOL into position. The Malyugin Ring was removed in the reverse order of its insertion. Residual viscoelastic was then removed first from posterior to the IOL, then from the anterior chamber using the I/A handpiece. The lens implant was noted to center nicely within the capsular bag. The incisions were stromally hydrated, and the anterior chamber was reformed using BSS. Then 0.5cc of moxifloxacin 1.0mg/ml were injected into the capsular bag and anterior chamber. The incisions were checked with a Weck spear and found to be secure. Several drops of ophthalmic povidone-iodine 5% were then applied to the eye followed by two drops of Imprimis combination prednisolone/moxifloxacin/nepafenac solution. The drapes were removed and a clear plastic protective eye shield was placed over the eye. The patient was then returned to Same Day Surgery in stable condition.
[2023-03-16 11:59] VITALS: BP 108/63; PULSE 68; RESP 16; TEMP 36.7; O2SAT 96
--- NOTE | 2023-03-16 11:59 | W.ANESPOSTOP ---
Postoperative Evaluation Date, Time and Location Date Performed: 03/16/23 Time Performed: 11:40 Patient Location: Day Surgery Unit Vital Signs Most Recent Imported Vital Signs: Most Recent Vital Signs Temp Pulse Resp BP Pulse Ox 36.6 C 60 16 122/67 97 03/16/23 11:29 03/16/23 11:29 03/16/23 11:29 03/16/23 11:29 03/16/23 11:29 Pain Score Most Recent Pain Score: Most Recent Pain Score Pain Level 0 03/16/23 11:29 Assessment Mental Status: Awake (Alert & Oriented to Patient Baseline) Airway and Respiratory Function: Patent airway with normal (patient baseline) respiratory exam Cardiovascular Function: Hemodynamically Stable Hydration Status: Adequately Hydrated Nausea & Vomiting: No Nausea or Vomiting Pain: Pt. Denies Any Pain Peripheral Nerve Block: Patient did not receive a nerve block
== END 2023-03-16 12:06 | disposition home or self-care (01) ==
PROVIDERS: PCP Family Medicine; Visit Provider Ophthalmology
PROC: (CPT 66982; principal; 2023-03-16 11:30)
DX: H25.12 Age-related nuclear cataract, left eye (principal); I10 Essential (primary) hypertension; K21.9 Gastro-esophageal reflux disease without esophagitis; Z87.891 Personal history of nicotine dependence
CPT/HCPCS: 66982; V2632

== ENCOUNTER 2023-03-30 08:47 | Day surgery (SDC) | payer OTHER, SELFPAY ==
[2023-03-30 08:55] VITALS: BP 150/80; PULSE 52; RESP 16; TEMP 36.3; O2SAT 99
[2023-03-30] MEDS: Tropicam./Phenyleph. (1/2.5%) 5 ML BTL OD ×3 (09:05→09:22)
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
[2023-03-30 09:32] VITALS: BMI 29.2
[2023-03-30] MEDS: Tetracaine 0.5% 4 ML BTL OD (10:11)
[2023-03-30] MEDS: Balanced Salt Soln.-PLUS 500 ML BAG OP (10:17)
[2023-03-30] MEDS: Lidocaine 1% Pres-Free 5 ML VIAL (10:18)
[2023-03-30] MEDS: Duovisc Viscoelastic System EACH 1 EACH (10:18)
[2023-03-30] MEDS: Phenylephrine/Lidocaine (15/10) MG/ML 1 ML VIAL (10:19)
[2023-03-30] MEDS: Povidone-Iodine Ophth 30 ML BTL (10:19)
--- NOTE | 2023-03-30 10:35 | W.PM.DSUDISC ---
Date of service: 03/30/23 Time of Service: 10:35 Discharge Plan Disposition Patient Disposition: Home Discharge Details Attending Provider: Lucian Palacios Primary Care Provider: Rufino Turner Home Meds and New Rx's Prescriptions: No Action sertraline 50 mg tablet 25 - 50 mg PO DAILY Qty: 90 2RF Rx Instructions: 25 mg /day for first month, then to 50 mg if needed famotidine [Pepcid] 20 mg tablet 20 mg PO QHS Qty: 90 3RF timolol maleate 0.5 % drops 1 drp ophthalmic (eye) BID omeprazole 40 mg capsule,delayed release(DR/EC) 40 mg PO BID Qty: 180 3RF magnesium oxide 400 MG capsule 400 mg PO BID Qty: 180 atorvastatin [Lipitor] 20 mg tablet 20 mg PO DAILY Qty: 90 4RF losartan 25 mg tablet 25 mg PO DAILY Qty: 90 3RF Rx Instructions: add to 50 mg tab to equal 75 mg/day tamsulosin [Flomax] 0.4 mg capsule 0.8 mg PO DAILY Qty: 180 3RF losartan 50 mg tablet 50 mg PO DAILY Qty: 90 3RF Discharge Instructions Stand Alone Forms: Post-op Topical Cataract, Love Amato (DSU) Discharge Orders Discharge Orders: Discharge Order (Routine); Ordered 03/30/23 Ordered By: Lucian Palacios DS: Diagnosis Discharge Diagnosis (1) Nuclear age-related cataract, right eye: Status: Resolved
[2023-03-30 10:36] VITALS: BP 102/66; PULSE 60; RESP 16; TEMP 36.6; O2SAT 98
--- NOTE | 2023-03-30 10:36 | W.PM.OP ---
Date of service: 03/30/23 Time of Service: 10:36 Operative Note Operative Note DATE OF PROCEDURE: 03/30/23 PRE-OP DIAGNOSIS: Nuclear cataract, right eye Poorly dilating pupil, right eye POST-OP DIAGNOSIS: same PROCEDURE: 1. Cataract extraction by phacoemulsification with intraocular lens implantation, right eye, with pupillary expansion device SURGEON: Lucian Palacios ANESTHESIA TYPE: Local By Surgeon and MAC Refer to Anesthesia Record PATHOLOGY: none sent COMPLICATIONS: None Patient was transported to: same day Patient's condition: stable Implants: Dwayne and Dwayne Tecnis Eyhance DIB00 Indications: Progressive decreased vision due to cataract, right eye, with poorly dilating pupil Procedure Description: CATARACT SURGERY OPERATIVE REPORT PREOPERATIVE DIAGNOSIS: 1. Nuclear cataract, right eye 2. Poorly dilating pupil, right eye POSTOPERATIVE DIAGNOSIS: Same OPERATION: 1. Cataract extraction using phacoemulsification with posterior chamber intraocular lens implant, right eye. 2. Pupillary dilation and iris stabilization using Malyugin Ring IOL: IOL Head Of Commission Department/Model: Dwayne & Dwayne Tecnis Eyhance DIB00 IOL Power: + 23.0 diopters IOL Serial Number: [id number] Optic Diameter: 6.0mm Haptic/Overall Diameter: 13.0mm PHACO INFO: Mychal Mandicurion Vision System with OZil and Active [employer]uid[employer] Cumulative Dispersed Energy (CDE): 16.85 seconds SURGEON: Lucian Palacios MD, SUHAIL ANESTHESIA: Monitored Anesthesia Care (MAC), with local sub-tenon's anesthetic infiltration COMPLICATIONS: None SPECIMENS: None INDICATIONS FOR PROCEDURE: Patient is a 77-year-old male with history of diminished visual acuity in both eyes secondary to the development of bilateral nuclear cataract. He was significantly symptomatic that he desired cataract surgery and attempt to improve and maximize his vision. The option of cataract surgery was offered to the patient and he wished to proceed. PROCEDURE: The correct surgical eye was identified and marked as the right eye and the pupil was dilated in the preoperative area using mydriatics and cycloplegics. The dilated pupil size was 4.0 mm. Oral sedation was administered in the form of an Imprimis MKO Melt (midazolam 3mg/ketamine 25mg/ondansetron 2mg). The patient was brought to the operating room where cardiopulmonary monitoring was instituted and surgical time-out was performed, confirming the correct operative eye and IOL power. Topical anesthesia was administered and ophthalmic povidone-iodine 5% was instilled into the conjunctival fornices. Lidocaine gel was applied to the cornea and the naz-ocular area was prepped with Betadine 10% solution and draped in the usual sterile fashion for intraocular surgery, including an aperture drape. A Tegaderm transparent film dressing was cut in half and used to cover the lashes and lid margins. Care was taken to sequester the lashes and lid margins under the Tegaderm dressing. A lid speculum was placed between the lids of the operative eye and the Mychal [employer] operating microscope was maneuvered into position. Jean-Pierre scissors were then used to make a conjunctival buttonhole approximately 6mm posterior to the limbus in the inferonasal quadrant. Blunt dissection was carried out to expose bare sclera, and a blunt-tipped sub-tenon?s anesthesia cannula was introduced and passed posteriorly along the globe where non-preserved plain lidocaine was injected into posterior sub-Tenon?s space. A sideport knife was used to make a paracentesis port. Intraocular phenylephrine/lidocaine was injected in the anterior chamber. The anterior chamber was filled with viscoelastic. A keratome knife was used to construct a 2-plane near-clear corneal tunnel extending 2.0mm into clear cornea. A 6.25 mm Malyugin Ring was then inserted into the pupillary space and engaged with the Kuglen hook. A flap was raised on the anterior capsule and capsulorhexis forceps were used to complete a continuous curvilinear capsulorhexis of 5.0 mm. Balanced salt solution was then used to perform cortical cleaving hydrodissection and nuclear hydrodelineation until the lens could be freely rotated within the capsular bag. The lens nucleus was then disassembled and removed within the capsular bag and iris plane using phacoemulsification. Residual cortical material was removed using the irrigation/aspiration handpiece. The posterior capsule was carefully polished to remove as much residual lens epithelial cells as safely possible. The capsular bag was then inflated and the anterior chamber deepened with viscoelastic. The lens implant described above was inserted into the capsular bag using the Dwayne and Dwayne Simplicity pre-loaded injector. A Kuglen hook was used to dial the IOL into position. The Malyugin Ring was removed in the reverse order of its insertion. Residual viscoelastic was then removed first from posterior to the IOL, then from the anterior chamber using the I/A handpiece. The lens implant was noted to center nicely within the capsular bag. The incisions were stromally hydrated, and the anterior chamber was reformed using BSS. Then 0.5cc of moxifloxacin 1.0mg/ml were injected into the capsular bag and anterior chamber. The incisions were checked with a Weck spear and found to be secure. Several drops of ophthalmic povidone-iodine 5% were then applied to the eye followed by two drops of Imprimis combination prednisolone/moxifloxacin/nepafenac solution. The drapes were removed and a clear plastic protective eye shield was placed over the eye. The patient was then returned to Same Day Surgery in stable condition.
[2023-03-30 11:09] VITALS: BP 115/74; PULSE 62; RESP 16; TEMP 36.2; O2SAT 96
--- NOTE | 2023-03-30 11:24 | W.ANESPOSTOP ---
Postoperative Evaluation Date, Time and Location Date Performed: 03/30/23 Time Performed: 11:24 Patient Location: Day Surgery Unit Vital Signs Most Recent Imported Vital Signs: Most Recent Vital Signs Temp Pulse Resp BP Pulse Ox 36.2 C L 62 16 115/74 96 03/30/23 11:09 03/30/23 11:09 03/30/23 11:09 03/30/23 11:09 03/30/23 11:09 Pain Score Most Recent Pain Score: Most Recent Pain Score Pain Level 0 03/30/23 11:09 Assessment Mental Status: Awake (Alert & Oriented to Patient Baseline) Airway and Respiratory Function: Patent airway with normal (patient baseline) respiratory exam Cardiovascular Function: Hemodynamically Stable Hydration Status: Adequately Hydrated Nausea & Vomiting: No Nausea or Vomiting Pain: Pt. Denies Any Pain Peripheral Nerve Block: Other (Local by Dr. Palacios) Postoperative Comments:: Seen prior to discharge. Appropriate for discharge.
== END 2023-03-30 11:10 | disposition home or self-care (01) ==
LOC: SUR 08:47
PROVIDERS: PCP Family Medicine; Visit Provider Ophthalmology
PROC: (CPT 66982; principal; 2023-03-30 11:30)
DX: H25.11 Age-related nuclear cataract, right eye (principal); H57.09 Other anomalies of pupillary function
CPT/HCPCS: 66982; V2632

== ENCOUNTER 2023-09-02 08:57 | Emergency (ER) | payer OTHER, SELFPAY ==
[2023-09-02 09:02] VITALS: BP 154/82; PULSE 79; RESP 20; TEMP 37.2; O2SAT 98
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
--- NOTE | 2023-09-02 09:49 | SUR.PHASEI ---
Right toe cleaned with sterile saline, bacitracin applied with clean bandaging per GALLERY MANAGER Seth.
--- NOTE | 2023-09-02 09:59 | NUR.NOTE ---
Nursing Note: Pt given wound care supplies and directed on how to care for wound at home. Pt discharged with steady gait.
== END 2023-09-02 10:00 | disposition home or self-care (01) ==
PROVIDERS: Emergency Provider Nurse Practitioner Family; PCP Family Medicine
DX: M79.671 Pain in right foot (principal); S91.201A Unspecified open wound of right great toe with damage to nail, initial encounter; C85.10 Unspecified B-cell lymphoma, unspecified site; Z92.21 Personal history of antineoplastic chemotherapy; G62.9 Polyneuropathy, unspecified; W23.1XXA Caught, crushed, jammed, or pinched between stationary objects, initial encounter
CPT/HCPCS: 99283; 99282

== ENCOUNTER 2025-01-20 10:04 | Outpatient (CLI) | payer OTHER, SELFPAY ==
--- NOTE | 2025-01-20 10:00 | RT.EKG_ITS ---
APPROVED REPORT Exam: Resting ECG Reason for Exam: Annual exam Patient Location: O HR:105 bpm ECG Measurements Heart Rate 105 AXIS LA [id number] P [id number] QRSd 116 QRS 59 QT 343 T 0 QTc 454 Conclusion Atrial fibrillation...V-rate 81-127, irreg A-activity IVCD
== END 2025-01-20 10:05 | disposition home or self-care (01) ==
LOC: DI.CM 10:04
PROVIDERS: PCP Family Medicine; Visit Provider Family Medicine
DX: R07.9 Chest pain, unspecified (principal); I48.19 Other persistent atrial fibrillation
CPT/HCPCS: 93010

== ENCOUNTER 2025-01-20 10:07 | Outpatient (CLI) | payer OTHER, SELFPAY ==
[2025-01-20 12:54] LABS: Anion Gap 9.3 mmol/L (3-11); BUN 12 mg/dL (7-18); CO2 25.7 mmol/L (21.0-32.0); CREATININE 1.3 mg/dL (0.70-1.30); Calcium 10.1 mg/dL (8.5-10.1); Chloride 101 mmol/L (98-107); Estimated GFR 56.23 (mL/min/1.73m2); Glucose 107 mg/dL (74-106); Potassium 4.3 mmol/L (3.5-5.1); Sodium 136 mmol/L (136-145)
[2025-01-20 13:15] LABS: Hemoglobin A1C 5.6 % (<5.7)
== END 2025-01-20 10:08 | disposition home or self-care (01) ==
LOC: LOS 10:07
PROVIDERS: PCP Family Medicine; Referring Provider Family Medicine; Visit Provider Family Medicine
DX: R73.9 Hyperglycemia, unspecified (principal); E87.1 Hypo-osmolality and hyponatremia; I10 Essential (primary) hypertension; I48.91 Unspecified atrial fibrillation
CPT/HCPCS: 36415; 80048; 83036

== ENCOUNTER 2025-02-11 00:29 | Outpatient (CLI) | payer OTHER, SELFPAY ==
--- NOTE | 2025-02-11 14:30 | DI.US_ITS ---
APPROVED REPORT EXAM: Comprehensive 2D, Doppler, and color-flow Echocardiogram Patient Location: Out-Patient Driver Helper: Mark Mejias RDCS (AE) Indications: Afib, HTN Other Information Study Quality: Fair Conclusion Normal left ventricular wall and chamber size. Ejection fraction is 60%. There are no segmental wal l motion abnormalities Normal right ventricular size and function Both atria are enlarged Aortic valve is sclerotic and probably trileaflet. There is no aortic stenosis or regurgitation Mild mitral and tricuspid regurgitation. Estimated right ventricular systolic pressure is 30 mmHg Wall motion Left Ventricle The left ventricle is normal size. The left ventricular systolic function is normal. The left ventric ular ejection fraction is within the normal range. There is normal left ventricular wall thickness. T here is normal LV segmental wall motion. There is no ventricular septal defect visualized. LVEF is 60 %. Right Ventricle The right ventricle is normal size. The right ventricular systolic function is normal. Atria Left atrium is moderately dilated. Right atrium is moderately dilated. The interatrial septum is inta ct with no evidence for an atrial septal defect. Aortic Valve The aortic valve is sclerotic. Aortic valve is probably trileaflet. There is no aortic valvular steno sis. No aortic regurgitation is present. Mitral Valve The mitral valve is normal in structure. No evidence of mitral valve stenosis. Mild mitral regurgitat ion. Tricuspid Valve The tricuspid valve is normal in structure. There is no tricuspid valve stenosis. Mild tricuspid regu rgitation. The RVSP is 30.2 mmHg. Pulmonic Valve The pulmonary valve is normal in structure. There is no pulmonic valvular stenosis. Mild pulmonic reg urgitation. Great Vessels The aortic root is normal in size. The ascending aorta is normal in size. Aortic arch is normal in ca liber. IVC is normal in size and collapses >50% with inspiration. Pericardium There is no pericardial effusion. 2D Dimensions IVSD d PLAX 0.71 cm M: 0.6-1.2 Ao Root d 2.43 cm M: 3.1 - 3.7 LVPW d PLAX 0.74 cm M: 0.6 - 1.2 Ao Asc Diam d 3.15 cm M: 2.6 - 3.4 LVID d PLAX 5.14 cm M: 4.2 - 5.8 LVDs 3.49 cm M: 2.5 - 4.0 LV EF Teichholz 59.8 % FS 31.98 % LV EDV (Teich) 125.8 mL LV ESV (Teich) 50.6 mL Stroke Vol Index (Teich) 32.54 M-Mode TAPSE 2.35 cm (M/F) >1.7 Auto EF LV EDV A4C 86.2 mL LV EDV A2C 108.6 mL LV EDV BP 97.6 mL LV ESV A4C 34.2 mL LV ESV A2C 43.2 mL LV ESV BP 40.1 mL LVEF(%) A4C 60.4 % LVEF(%) A2C 60.2 % LVEF(%) BP 58.9 % LV SV A4C 52.0 ml LV SV A2C 65.4 ml LV SV BP 57.5 ml LV CO A4C 4.3 L/min LV CO A2C 5.6 L/min LV CO BP 5.0 L/min HR A4C 83.34 BPM HR A2C 85.51 BPM LV EDV Index (BP) LA Volume LA Length A4C 6.3 cm LA Length A2C 6.3 cm LA Area A4C s 23.02 cm2 LA Area A2C s 21.56 cm2 LA Vol A4C A-L 71.35 mL LA Vol A2C A-L 62.45 mL LA Vol Biplane A-L 66.8 mL LA Vol/BSA A4C A-L LA Vol/BSA A2C A-L LA Vol/BSA BP A-L 28.9 mL/m2 LA Vol A4C MOD 65.7 mL LA Vol A2C MOD 59.3 mL LA Vol BP MOD 62.4 mL RA Volume RA Area A4C 22.0 cm2 RA ESV A4C (A-L) 72.0mL RA Vol/BSA A4C A-L RA Length A4C 5.7 cm RA ESV A4C (MOD) 68.2mL LV Diastology MV E' medial 0.103 (>0.07 m/s) MV E Vmax 0.95 (0.4-1.3 m/s) MV E/E' MED 9.24 (<14) MV E' lateral 0.111 (>0.1 m/s) MV E/E' LAT 8.61 (<14) MV E' Average 0.107 m/s MV E/E'(average) 8.91 Aortic Valve AoV Vmax 1.68 m/s LVOT Vmax 0.70 m/s AoV Peak Grad 11.3 mmHg LVOT Peak Grad 2.0 mmHg AoV Area (Vmax) 1.35 cm2 LVOT VTI 0.150 m AoV VTI 0.308 m LVOT Mean Grad 1.1 mmHg AoV Mean Marquez. 1.15 m/s LVOT SV 48.31 mL AoV Mean Grad 6.1 mmHg LVOT Diam s 2.00 cm AoV Area (VTI) 1.57 cm2 AV Regurg Peak Gr. 11.32 mmHg Velocity Ratio 0.42 Mitral Valve MV DT 134 (160-240 msec) Pulmonary Valve RVOT Vmax 0.50 m/s RVOT Peak Gr. 1.0 mmHg RVOT VTI 0.078 m RVOT Mean Gr. 0.6 mmHg Tricuspid Valve RA Pressure 3.00 mmHg TR Vmax 2.61 m/s TR Peak Grad 27.2 mmHg RVSP (TR) 30.2 mmHg
== END 2025-02-11 00:49 ==
LOC: DI 00:29
PROVIDERS: PCP Family Medicine; Visit Provider Internal Medicine Cardiovascular Disease
DX: I10 Essential (primary) hypertension (principal); I08.1 Rheumatic disorders of both mitral and tricuspid valves
CPT/HCPCS: 93306

== ENCOUNTER 2025-02-13 12:42 | Outpatient (CLI) | payer OTHER, SELFPAY ==
--- NOTE | 2025-02-13 12:30 | RT.EKG_ITS ---
APPROVED REPORT Exam: Resting ECG Reason for Exam: new onset afib Patient Location: O HR:104 bpm ECG Measurements Heart Rate 104 AXIS DE [id number] P [id number] QRSd 107 QRS 61 QT 349 T -4 QTc 459 Conclusion Atrial fibrillation...V-rate 90-124, irreg A-activity Borderline T abnormalities, inferior leads...T flat/neg, II III aVF
== END 2025-02-13 12:43 | disposition home or self-care (01) ==
LOC: DI.CARD 12:43
PROVIDERS: PCP Family Medicine; Visit Provider Internal Medicine Cardiovascular Disease
DX: I48.91 Unspecified atrial fibrillation (principal); I10 Essential (primary) hypertension
CPT/HCPCS: 93010